=== PATIENT | male | born 1945 | race Caucasian/White ===

== ENCOUNTER 2018-10-17 10:15 | Observation (INO) ==
[~2018-10-17 10:15] MED LIST: IPRATROPIUM/ALBUTEROL SULFATE 3 ML NEB NEB ONE; LIDOCAINE W/ SODIUM BICARB 0.5 ML SYR SUBD PRN
[2018-10-17] MEDS ORDERED: LIDOCAINE W/ SODIUM BICARB 0.5 ML SYR ONE (10:19)
[2018-10-17] MEDS ORDERED: Lactated Ringers 1,000 ML PRIMARY IV ONE ×3 (10:19→22:56)
[2018-10-17 11:01] LABS: Hematocrit [HCT] 43.7 % (42.0-52.0); Hemoglobin [HGB] 14.7 g/dL (14.0-18.0); MEAN CORPUSCULAR HEMOGLOBIN 30.6 PG (27-31); MEAN CORPUSCULAR HGB CONC 33.6 g/dL (33-37); MEAN CORPUSCULAR VOLUME 90.9 FL (80-90); MEAN PLATELET VOLUME 10.5 FL (7.4-12.2); RED BLOOD COUNT 4.81 10^6/uL (4.70-6.10)
[2018-10-17] MEDS ORDERED: IPRATROPIUM/ALBUTEROL SULFATE 3 ML NEB NEB ONE (11:28)
[2018-10-17] MEDS: Lactated Ringers 1,000 ML PRIMARY IV SCH ×3 (12:00→22:59)
[2018-10-17] MEDS ORDERED: HYDROmorphone 2 MG/1 ML IVP PRN (12:02)
[2018-10-17] MEDS ORDERED: fentaNYL Inj 100 MCG/2 ML VIAL IVP PRN (12:02)
[2018-10-17] MEDS ORDERED: LIDOCAINE W/ SODIUM BICARB 0.5 ML SYR SUBD PRN (12:02)
[2018-10-17] MEDS ORDERED: MIDAZOLAM HCL 2 MG/2 ML VIAL ONE (13:06)
[2018-10-17] MEDS ORDERED: LIDOCAINE MPF 2% - 5 ML (20 MG/1 ML) ONE (13:06)
[2018-10-17] MEDS ORDERED: fentaNYL Inj 250 MCG/5 ML VIAL ONE (13:06)
[2018-10-17] MEDS ORDERED: PROPOFOL 10 MG/1 ML (200 MG/20 ML) VIAL IV ONE ×2 (13:07→13:58)
[2018-10-17] MEDS ORDERED: LIDOCAINE HCL 1%/EPI 1:100,000 - 20 ML VIAL ONE (13:16)
[2018-10-17] MEDS ORDERED: Bacitracin Oint 14.2 gm tube 14 APPLIC/14.2 GM TUBE TOPICAL ONE ×2 (13:16→14:01)
[2018-10-17] MEDS ORDERED: OXYMETAZOLINE 0.05% 15 ML NASAL SPRAY ONE (13:37)
[2018-10-17] MEDS ORDERED: ePHEDrine Inj 50 MG/ML AMP ONE (14:02)
[2018-10-17] MEDS ORDERED: ceFAZolin 1 GM VIAL ONE (14:05)
[2018-10-17] MEDS ORDERED: PHENYLEPHRINE 10,000 MCG/1 ML VIAL ONE (14:22)
[2018-10-17] MEDS ORDERED: Sodium Chloride 0.9% vial 10 ML ONE (14:22)
[2018-10-17] MEDS ORDERED: ceFAZolin Inj 2 GM in Sodium Chloride 0.9% 100 ML IV ONE (14:24)
[2018-10-17] MEDS ORDERED: HYDROcodone-APAP 7.5 MG-325 MG TABLET PO PRN ×2 (15:18→21:58)
--- NOTE | 2018-10-17 15:20 | CRNA.PROGR ---
Anesthesia Recovery Phase I - Post Anesthesia Evaluation Patient's Condition on Arrival in Phase I: Stable Pain Level: 1
--- NOTE | 2018-10-17 15:20 | CRNA.PROGR ---
Anesthesia Time - Procedure/Recovery Time Start Date: 10/17/18 End Date: 10/17/18 Anesthesia : Time In: 13:45 Anesthesia : Time Out: 15:05 Anesthesia : Total Time: 80 - Total Anesthesia Time Total Anesthesia Time (minutes): 80 - Other Weight: 76.204 kg Height: 5 ft 10 in Body Mass Index (BMI): 24.0 Physical Status: P2 Anesthesia Type: General Anesthesia : ET
[2018-10-17] MEDS ORDERED: MIDAZOLAM 5 MG/1 ML IVP PRN ×2 (16:03→16:30)
[2018-10-17] MEDS: LABETALOL 20 MG/4 ML (5 MG/1 ML) SYRINGE IVP PRN ×3 (16:25→16:46)
--- NOTE | 2018-10-17 19:35 | CONSULT ---
Consult Note - Consult Reason for Consult: PostOp Consulation : ENT Requesting Physician: [facility] Primary Care Provider: OLY SHIN - History of Present Illness History of Present Illness: This very nice 73-year-old gentleman who underwent nasal surgery. Postop he was a little hypoxic Dr. Saab consult the hospitalist service to watch the patient that he is admitting for observation for his hypoxia he is feeling pret ty well right now he is on a nasal mask which I recommended since he has never sees a plugged with the cotton secondary to surgery. He only complains of a very sore throat and would like something to numb it up denies chest pain nausea or vomiting Past Medical History Medical History: Hypothyroidism, hypertension Tobacco Use: Never Smoker Do you dip or chew tobacco: Yes In the Past 12 Months, Have Used or Abuse Any of the Following Substance: None Review of Systems - Review of Systems All Systems: Reviewed & No Additional Complaints Except as Stated - Ear/Nose Exam Ear/Nose Exam: REPORTS: Congestion, Other (Sore throat most likely secondary to intubation) - Respiratory Respiratory: DENIES: Negative System Review, Cough, Sputum, Dyspnea At Rest, Dyspnea with Exertion, Pleuritic Pain, Hemoptysis, Wheezing, Other, See HPI - Cardiovascular Cardiovascular: DENIES: Negative System Review, Chest Pain, Edema, Syncope, Palpitations, Orthopnea, Paroxysmal Nocturnal Dyspnea, Other, See HPI - Gastrointestinal Gastrointestinal / Abdominal: DENIES: Negative System Review, Nausea, Vomiting, Diarrhea, Constipation, Abdominal Pain, Bloody Stool, Poor Appetite, Heartburn, Regurgitation, Bloating, Lactose Intolerance, Melena, Bright Red Blood per Rectum, Other, See HPI Medication / Allergies Home Medications: Home Medications Medication Instructions Recorded Confirmed Type Levothyroxine Sodium [Synthroid] 112 mcg PO DAILY 01/15/10 10/17/18 History diltiazem ER 120 mg 120 mg PO BID 09/13/18 10/17/18 History capsule,extended release 12 hr Cephalexin [Keflex] 500 mg PO TID 10 Days cap 10/17/18 Rx HYDROcodone/APAP 5/325 Tab [[place] 1 - 2 tab PO Q4H PRN #30 tab 10/17/18 Rx 5/325 Tab] Allergies/Adverse Reactions: Allergies Allergy/AdvReac Type Severity Reaction Status Date / Time No Known Allergies Allergy Verified 10/17/18 10:35 Exam - Vitals Vital Signs: Vital Signs Temperature 98.6 F Pulse Rate 88 Respiratory Rate 12 Blood Pressure 162/105 Pulse Ox 93 Oxygen Flow Rate 10 L by simple mask Height 5 ft 10 in Weight 168 lb - General General Appearance: No Acute Distress, Cooperative - Head Head Exam: Normal Inspection, Normocephalic, Atraumatic - ENT Additonal ENT Exam Details: Both the naris cc are plugged with the cotton secondary to surgery he is mainly breathing through his mouth - Respiratory Respiratory Exam: POSITIVE: Clear to Auscultation - Bilaterally, Breathing Non Labored, Normal To Percussion, Normal to Percussion and Palpation - Cardiovascular Cardiovascular Exam: POSITIVE: RRR, No Murmur, No Clicks, No Gallops, No Rubs, PMI Non-Displaced - GI/Abdominal GI/Abdominal Exam: POSITIVE: Normal Bowel Sounds, Non Tender, Non Distended, Soft, No Masses, No Hepatomegaly, No Splenomegaly, No Organomegaly Results - Labs CBC and BMP: 10/17/18 10:57 Assessment and Plan - Patient Problems (1) S/P surgery on nasal septum Current Visit: Yes Status: Acute Comment: Plan as per Dr. Saab Code(s): Z98.890 - Other specified postprocedural states (2) Hypoxia Current Visit: Yes Status: Acute Comment: Continue oxygen via mask patient is breathing through his mouth most likely from anesthesia will monitor is doing well now. We'll order some Hurricaine spray for his throat discussed with nursing Code(s): R09.02 - Hypoxemia
[2018-10-17] MEDS: LEVOTHYROXINE 112 MCG TABLET PO SCH (19:54)
[2018-10-17] MEDS ORDERED: DILTIAZEM 120 MG PO SCH ×3 (21:00→23:00)
[2018-10-18 04:55] LABS: BASOPHILS # (AUTO) 0.02 10*3/UL; BASOPHILS % (AUTO) 0.2 % (0-1); EOSINOPHILS # (AUTO) 0.44 10*3/UL; EOSINOPHILS % (AUTO) 5.1 % (0-8); Hematocrit [HCT] 40.5 % (42.0-52.0); Hemoglobin [HGB] 13.3 g/dL (14.0-18.0); LYMPHOCYTES # (AUTO) 1.29 10*3/uL; MEAN CORPUSCULAR HEMOGLOBIN 29.9 PG (27-31); MEAN CORPUSCULAR HGB CONC 32.8 g/dL (33-37); MEAN PLATELET VOLUME 9.5 FL (7.4-12.2); MONOCYTES # (AUTO) 0.93 10*3/UL (0.3-0.8); MONOCYTES % (AUTO) 10.7 % (5-15); NEUTROPHILS # (AUTO) 5.98 10*3/UL; RED BLOOD COUNT 4.45 10^6/uL (4.70-6.10)
[2018-10-18 05:01] LABS: BLOOD UREA NITROGEN 11 mg/dL (7-22); BUN/CREATININE RATIO 12.22 (6-20); PLATELET MORPHOLOGY COMMENT NORMAL MORPHOLOGY (NORM); RBC MORPHOLOGY COMMENT NORMAL MORPHOLOGY (NORM); SERUM ALBUMIN 3.5 g/dL (3.5-4.8); WBC MORPHOLOGY COMMENT NORMAL MORPHOLOGY (NORM)
[2018-10-18] MEDS: LEVOTHYROXINE 112 MCG TABLET PO SCH (05:36)
[2018-10-18] MEDS ORDERED: Lactated Ringers 1,000 ML PRIMARY IV ONE (06:44)
[2018-10-18] MEDS: Lactated Ringers 1,000 ML PRIMARY IV SCH (06:45)
[2018-10-18] MEDS ORDERED: Lactated Ringers 1,000 ML PRIMARY IV SCH (07:45)
[2018-10-18] MEDS: DILTIAZEM HCL CD 120 MG CAP PO SCH ×2 (08:44→20:15)
[2018-10-18] MEDS ORDERED: DILTIAZEM 120 MG PO SCH (09:00)
[2018-10-18] MEDS ORDERED: ONDANSETRON 4 MG/2 ML VIAL IVP PRN (09:30)
--- NOTE | 2018-10-18 09:39 | PDOC(PROG) ---
Interval History: Patient seen this morning he's having some vomiting he just had his nasal packing pulled out he says he still feels like his nose is still stuffed. Denies chest pain or shortness of breath I encouraged him to wear his oxygen mask since he was not wearing it this morning Objective : Data - Labs CBC and BMP: 10/18/18 04:20 10/18/18 04:20 Objective : Exam - General General Appearance: Cooperative - Respiratory Respiratory Exam: Clear to Auscultation - Bilaterally, Breathing Non Labored, Normal To Percussion, Normal to Percussion and Palpation - Cardiovascular Cardiovascular Exam: RRR, No Murmur, No Clicks, No Gallops, No Rubs, PMI Non- Displaced - GI/Abdominal GI/Abdominal Exam: Normal Bowel Sounds, Non Tender, Non Distended, Soft, No Masses, No Hepatomegaly, No Splenomegaly, No Organomegaly Assessment and Plan - Patient Problems (1) S/P surgery on nasal septum Current Visit: Yes Status: Acute Comment: Deferred Dr. Saab for postop orders and follow-up Code(s): Z98.890 - Other specified postprocedural states (2) Hypoxia Current Visit: Yes Status: Acute Comment: Continue oxygen most likely secondary nose and anesthesia patient improving today Code(s): R09.02 - Hypoxemia (3) Nausea and vomiting Current Visit: Yes Status: Acute Comment: Most likely postanesthesia we'll give antiemetics Code(s): R11.2 - Nausea with vomiting, unspecified
[2018-10-18] MEDS: BENZOCAINE ORAL 57 GM SPRAY PO PRN ×2 (12:59→15:41)
--- NOTE | 2018-10-18 15:01 | PDOC(PROG) ---
General Note Progress Note: I did check on the patient, his oxygen is 83% when he walked. I did speak with the respiratory therapist and apparently his oxygen level was 85% before the surgery. The patient did say that every time he goes a physician office the time that his oxygen is low but nobody prescribe oxygen for him. Although it seems that he would refuse that. Today he feels he is not ready to go home he had yet we decided that we'll see him in the morning and likely home tomorrow.
[2018-10-18] MEDS: CEPHALEXIN 500 MG CAPSULE PO SCH ×2 (17:54→20:14)
[2018-10-18 20:52] VITALS: RESP 16
[2018-10-19 00:15] VITALS: TEMP 98.2
[2018-10-19 04:03] VITALS: BP 128/83
[2018-10-19] MEDS: LEVOTHYROXINE 112 MCG TABLET PO SCH (08:19)
[2018-10-19] MEDS: CEPHALEXIN 500 MG CAPSULE PO SCH (08:19)
[2018-10-19] MEDS: DILTIAZEM HCL CD 120 MG CAP PO SCH (08:19)
--- NOTE | 2018-10-19 09:42 | DCSUMMARY ---
Hospitalization Summary Admit Date: 10/17/2018 Discharge Date: 10/19/18 Hospital Course: Discharge diagnoses 1. Nasal obstruction status post nasal septoplasty 2. Hypoxia 3. History of hypothyroidism 4. History of palpitation 5. Right pleural effusion small to moderate on a chest x-ray done presurgery. Need follow-up as an outpatient. Hospital course This is a 73 years old male with medical history significant for history of hypothyroidism, history of palpitation and nasal obstruction who came into the hospital to have surgery for deviated nasal septum and was done by Dr. Saab. Patient did have hypoxia and was admitted for observation. He was a seen by the hospitalist service by Dr. Levine please see his note. it Was felt that probably the anesthetic played some parts it in addition to his nasal obstruction. I saw him the next day he was denying symptoms he was bothered by his oxygen. He did have though earlier nausea and vomiting so we decided to keep him under observation. I did notice that he had a chest x-ray done on the which showed small to moderate pleural effusion. The patient himself is denying shortness of breath he walked and there was no shortness of breath but he is still oxygen sats were in the mid 80s. He accepted to be on oxygen this t hallie. He did tell me that that he was told in the past that his oxygen stat was low but he didn't want to be on oxygen. We thought that he can be discharged but he need follow-up with his primary to follow up on the pleural effusion, apparently had a recent pneumonia and was on antibiotics. I think probably need to have a repeat x-ray in 2-3 weeks with his primary to look at the pleural effusion. Patient will be discharged home follow-up with his primary and with the Dr. Saab. Discharge instruction Diet regular Activity as tolerated Medications Current Medication(s) Medication Instructions Recorded Confirmed Type RX: Levothyroxine Sodium 112 mcg PO DAILY 01/15/10 10/17/18 History [Synthroid] diltiazem ER 120 mg 120 mg PO DAILY 09/13/18 10/18/18 History capsule,extended release 12 hr Follow-up with PCP in 1-2 weeks, with Dr. Saab, condition at discharge was stable for discharge Condition at discharge was stable for discharge Exam - Vitals Vital Signs: Vital Signs Temperature 98.2 F Temperature Source Oral Pulse Rate [Pulse Oximeter] 91 Pulse Rate 91 Respiratory Rate 16 Blood Pressure [Left Arm] 128/83 Blood Pressure 162/105 Pulse Ox 93 Oxygen Flow Rate 3 Oxygen Delivery Method Nasal Cannula Height 5 ft 10 in Weight 165 lb 4.8 oz - General General Appearance: No Acute Distress, Cooperative - Head Head Exam: Normal Inspection - Eye Eye Exam: POSITIVE: Normal Appearance - ENT ENT Exam: POSITIVE: Normal Exam - Neck Neck Exam: Normal Inspection - Respiratory Respiratory Exam: POSITIVE: Clear to Auscultation - Bilaterally - Cardiovascular Cardiovascular Exam: POSITIVE: RRR - GI/Abdominal GI/Abdominal Exam: POSITIVE: Normal Bowel Sounds, Non Tender, Non Distended, Soft, No Organomegaly - Rectal Rectal Exam: POSITIVE: Deferred - External Exam: POSITIVE: Deferred - Extremities Extremities Exam: POSITIVE: Normal Inspection - Back Back Exam: POSITIVE: Normal Inspection - Neurological Neurological Exam: POSITIVE: Alert, Oriented x 3, CN II-XII Intact, No Facial Droop, Speech Intact / Clear, Moves All Extremities Equally - Psychiatric Psychiatric Exam: POSITIVE: Normal Affect
[2018-10-19 09:43] VITALS: O2SAT 85
== END 2018-10-19 12:55 | disposition home or self-care (01) ==
LOC: OR 10:15 → MED/SURG 10:15
PROVIDERS: ADMIT Otolaryngology; ATTEND Otolaryngology